=== PATIENT | female | born 1980 | race Caucasian/White ===

== ENCOUNTER 2018-02-16 10:06 | Day surgery (SDC) | payer MEDICAID ==
[~2018-02-16 10:06] MED LIST: ACETAMINOPHEN 1,000 MG/100 ML BTL IV ONE; CEFAZOLIN 2 Gram 2 GM/50 ML BAG IVPB ONE
[2018-02-16] MEDS ORDERED: HYDROCODONE/APAP 5/325MG TABLET PO ONE (10:07)
[2018-02-16] MEDS ORDERED: MIDAZOLAM HCL 2MG/2ML VIAL IV ONE (10:07)
[2018-02-16] MEDS ORDERED: *PACU ONLY* KETAMINE HCL 10 MG/ML (20ML) VIAL IV ONE (10:07)
[2018-02-16] MEDS ORDERED: LIDOCAINE 2% MDV (20MG/ML) 20ML VIAL IV ONE (10:07)
[2018-02-16] MEDS ORDERED: BUPIVACAINE 0.25% W/EPI MPF 30ML VIAL IVP ONE (10:07)
[2018-02-16] MEDS ORDERED: PROPOFOL 10 MG/ML VIAL IV ONE (10:07)
--- NOTE | 2018-02-19 11:00 | Operative Note ---
DATE OF SURGERY: 02/16/2018 Surgeon: Shant Alexander DO PREOPERATIVE DIAGNOSIS: Recurrent left breast abscess. POSTOPERATIVE DIAGNOSIS: Recurrent left breast abscess. OPERATION: I&D and debridement of left breast abscess. Indication: The patient is a 37-year-old female who has had a recurrent left breast abscess. We did send her for breast MRI which did reveal an abscess underneath the left nipple. She had some mild bit of black eschar over the skin as well. Therefore, consent was signed and questions answered. PROCEDURE: The patient was taken to the operating room and placed in a supine position. Local IV sedation was given per the department of anesthesia. The patient's left breast was prepped and draped in the usual fashion. The area over the abscess was anesthetized with a total of 5 mL of 0.25% Sensorcaine with epinephrine. An 11 blade was used to drain the abscess. Aerobic and anaerobic cultures were taken. The black eschar was debrided which measured about 0.5 cm. The wound was then irrigated and packed with iodoform gauze. She was sent to the recovery room in stable condition. CC: SHIVANI Sky
== END 2018-02-16 12:40 | disposition home or self-care (01) ==
LOC: SUR 10:06
PROVIDERS: ATTEND Surgery
DX: N61.1 Abscess of the breast and nipple (principal); E78.00 Pure hypercholesterolemia, unspecified
CPT/HCPCS: 10060; 00400; J0690

== ENCOUNTER 2018-02-20 23:39 | Emergency (ER) | payer MEDICAID ==
[2018-02-20] MEDS ORDERED: PREDNISONE 20 MG TAB PO ONE (23:49)
[2018-02-20] MEDS ORDERED: DIPHENHYDRAMINE HCL 25 MG CAPSULE PO ONE (23:49)
[2018-02-20] MEDS ORDERED: LORATADINE 10 MG TABLET PO STA (23:49)
--- NOTE | 2018-02-20 23:52 | Emergency Department Record ---
History of Present Illness - General Chief Complaint: Wound, check Stated Complaint: POST SURGICAL RASH Time Seen by Provider: 02/20/18 23:46 Source: Patient Mode of arrival: Ambulatory Limitations: No limitations - History of Present Illness Initial Comments: 37 yo female presents with hives on her left breast. She reports she had surgery for a left breast abscess. She had had itching since Friday. The itching has gradually increased since Friday. The last day she has noted a few hives on the left breast only. NO shortness of breath. No fevers. No cough or facial swelling. No tongue or lip swelling. Dr Alexander is her surgeon. MD Complaint: Wound re-check -: Days(s) (3) Initial Visit For: Other (Hives) Returns Today for: Wound recheck Symptoms Since Prior Visit: No new symptoms Associated Symptoms: Other (itching) Treatments Prior to Arrival: Other (breast surgery) - Related Data Home Medications Medication Instructions Recorded Confirmed Last Taken Gabapentin [Neurontin] 300 mg PO BID 02/21/18 02/21/18 Unknown Gabapentin [Neurontin] 600 mg PO DAILY 02/21/18 02/21/18 Unknown Previous Rx's Medication Instructions Recorded Cetirizine HCl [Zyrtec] 10 mg PO DAILY #15 tablet 02/20/18 Diphenhydramine HCl [Benadryl] 25 mg PO Q6H #20 cap 02/20/18 Allergies Allergy/AdvReac Type Severity Reaction Status Date / Time oxycodone HCl [From Percocet] AdvReac Intermediate HYPERSENSIT Verified 00:00 IVITY Review of Systems Constitutional: Denies: Chills, Fever, Malaise, Weakness Eyes: Denies: Eye discharge ENT: Denies: Congestion, Throat pain Respiratory: Denies: Cough Cardiovascular: Denies: Chest pain Endocrine: Denies: Fatigue Gastrointestinal: Denies: Abdominal pain, Diarrhea, Nausea, Vomiting Genitourinary: Denies: Dysuria, Urgency Musculoskeletal: Denies: Arthralgia, Back pain, Myalgia Skin: Reports: Rash (Hives). Denies: Bruising Neurological: Denies: Confusion, Weakness Psychiatric: Denies: Anxiety Hematological/Lymphatic: Denies: Easy bleeding, Easy bruising Past Medical History - SOCIAL HISTORY Smoking Status: Current every day smoker - RESPIRATORY Hx Respiratory Disorders: Yes Hx Bronchitis: Yes - CARDIOVASCULAR Hx Cardio Disorders: Yes Hx Palpitations: Yes (with diet pop) Comment:: high cholesterol - NEURO Hx Neuro Disorders: Yes Hx of Migraines: Yes (3-4 x's a year) - GI Hx GI Disorders: No - Hx Genitourinary Disorders: No Comment:: s/p TL - ENDOCRINE Hx Endocrine Disorders: No - MUSCULOSKELETAL Hx Musculoskeletal Disorders: Yes - PSYCH Hx Psych Problems: No - HEMATOLOGY/ONCOLOGY Hx Hematology/Oncology Disorders: No Family Medical History Family Hx Comment (NOT TO BE USED IN PLACE OF ITEMS BELOW): family blood clots Physical Exam - General General Appearance: Alert, Oriented x3, Cooperative, No acute distress Limitations: No limitations - Head Head exam: Normal inspection - Eye Eye exam: Normal appearance, PERRL. negative: Conjunctival injection, Scleral icterus - ENT ENT exam: Normal exam, Mucous membranes moist Ear exam: Normal external inspection Nasal Exam: Normal inspection Mouth exam: Normal external inspection Throat exam: Normal inspection - Neck Neck exam: Normal inspection, Full ROM. negative: Tenderness - Respiratory Respiratory exam: Normal lung sounds bilaterally. negative: Respiratory distress - Cardiovascular Cardiovascular Exam: Regular rate, Normal rhythm, Normal heart sounds - GI/Abdominal GI/Abdominal exam: Soft. negative: Tenderness - Rectal Rectal exam: Deferred - exam: Deferred - Extremities Extremities exam: Normal inspection Image of Full Body: 1 - few scattered hives around the breast, no abnormal warmth or blisters, no bruising, no signs of infection or cellulitis - Neurological Neurological exam: Alert, Oriented X3 - Psychiatric Psychiatric exam: Normal affect, Normal mood - Skin Skin exam: Rash, Urticaria Disposition Disposition: Discharge Clinical Impression: Hives Disposition: Home, Self-Care Condition: (1) Good Instructions: Urticaria (ED) Additional Instructions: Take the Zyrtec and Benadryl for the itching Call Dr Alexander with further care of the healing Return if you have any worsening symptoms, fever, short of breath or concerns Prescriptions: Cetirizine HCl [Zyrtec] 10 mg PO DAILY #15 tablet Diphenhydramine HCl [Benadryl] 25 mg PO Q6H #20 cap Forms: Patient Portal Access Time of Disposition: 23:54 Quality - Quality Measures Quality Measures: N/A - Blood Pressure Screening Does Patient Have Any of the Following: No Blood Pressure Classification: Normal BP Reading Systolic Measurement: 113 Diastolic Measurement: 69 Screening for High Blood Pressure: < Normal BP, F/U Not Required > [G8783]
== END 2018-02-21 00:07 | disposition home or self-care (01) ==
LOC: ER 23:39
DX: L50.9 Urticaria, unspecified (principal); Z98.890 Other specified postprocedural states; F17.210 Nicotine dependence, cigarettes, uncomplicated
CPT/HCPCS: 99282; J7512

== ENCOUNTER 2018-03-28 10:52 | Emergency (ER) | payer MEDICAID ==
[2018-03-28] MEDS ORDERED: KETOROLAC 30 MG/ML VIAL IVP STA (11:00)
[2018-03-28] MEDS ORDERED: AMPICILLIN SODIUM/SULBACTAM NA 3 G in 0.9 % SODIUM CHLORIDE 100ML 100 ML IVPB ONE (11:00)
--- NOTE | 2018-03-28 11:07 | Emergency Department Record ---
History of Present Illness - General Chief complaint: Dental Stated complaint: TOOTH INFECTION Time Seen by Provider: 03/28/18 10:55 Source: Patient Mode of Arrival: Ambulatory Limitations: No limitations - History of Present Illness Initial comments: 37 yo female presents with left jaw swelling that started yesterday. She has a history of recurrent dental infections. She had similar infection on the right lower jaw one month ago. No pus or drainage. She has an appointment with a dentist but not until April. No trouble swallowing. No voice changes. She has swelling of the left jaw. No fevers. She is not on antibiotics. MD complaint: Tooth pain -: Days(s) (2) Location: Other Severity: Moderate Quality: Aching Consistency: Constant Improves with: None Worsens with: Eating, Movement Context-Epistaxis: Other Context- Dental: History of dental caries Associated Symptoms: Toothache - Related Data Previous Rx's Medication Instructions Recorded Amoxicillin/Potassium Clav 1 tab PO BID #20 tab 03/28/18 [Augmentin 875-125 Tablet] Allergies Allergy/AdvReac Type Severity Reaction Status Date / Time oxycodone HCl [From Percocet] AdvReac Intermediate HYPERSENSIT Verified 11:00 IVITY Review of Systems Constitutional: Denies: Chills, Fever, Malaise, Weakness Eyes: Denies: Eye discharge ENT: Reports: As per HPI, Dental pain. Denies: Congestion, Throat pain Respiratory: Denies: Cough, Dyspnea, Hemoptysis, Wheezes Cardiovascular: Denies: Chest pain, Syncope Endocrine: Denies: Fatigue Gastrointestinal: Denies: Abdominal pain, Diarrhea, Nausea, Vomiting Genitourinary: Denies: Dysuria Musculoskeletal: Denies: Arthralgia, Back pain, Joint swelling, Myalgia Skin: Denies: Bruising, Change in color, Rash Neurological: Denies: Headache, Numbness, Weakness Psychiatric: Denies: Anxiety Hematological/Lymphatic: Denies: Easy bleeding, Easy bruising, Swollen glands Past Medical History - SOCIAL HISTORY Smoking Status: Current every day smoker - RESPIRATORY Hx Respiratory Disorders: Yes Hx Bronchitis: Yes - CARDIOVASCULAR Hx Cardio Disorders: Yes Hx Palpitations: Yes (with diet pop) Comment:: high cholesterol - NEURO Hx Neuro Disorders: Yes Hx of Migraines: Yes (3-4 x's a year) - GI Hx GI Disorders: No - Hx Genitourinary Disorders: No Comment:: s/p TL - ENDOCRINE Hx Endocrine Disorders: No - MUSCULOSKELETAL Hx Musculoskeletal Disorders: Yes - PSYCH Hx Psych Problems: No - HEMATOLOGY/ONCOLOGY Hx Hematology/Oncology Disorders: No Family Medical History Family Hx Comment (NOT TO BE USED IN PLACE OF ITEMS BELOW): family blood clots Physical Exam - General General Appearance: Alert, Oriented x3, Cooperative Limitations: No limitations - Head Head exam: negative: Normal inspection Image of Face/Head: 1 - swelling and tenderness, no erythema - Eye Eye exam: Normal appearance, Conjunctival injection. negative: Periorbital swelling, Periorbital tenderness, Scleral icterus - ENT ENT exam: Mucous membranes moist. negative: Normal orophraynx Ear exam: Normal external inspection Nasal Exam: Normal inspection Mouth exam: Tongue normal. negative: Normal external inspection, Drooling, Muffled voice, Tongue elevation Teeth exam: Dental caries, Dental tenderness # (19), Fractured tooth # (19), Gingival enlargement (no palpable or visible abscess, mild diffuse iflammation of the gum around the tooth). negative: Normal inspection Throat exam: Normal inspection. negative: Tonsillar erythema, Tonsillomegaly, Tonsillar exudate, R peritonsillar mass, L peritonsillar mass - Neck Neck exam: Normal inspection, Full ROM, Other (soft, supple, no tenderness or pain). negative: Lymphadenopathy, Meningismus, Tenderness - Respiratory Respiratory exam: Normal lung sounds bilaterally. negative: Respiratory distress - Cardiovascular Cardiovascular Exam: Regular rate, Normal rhythm, Normal heart sounds - Extremities Extremities exam: Normal inspection - Back Back exam: Reports: Normal inspection - Neurological Neurological exam: Alert, Oriented X3 - Psychiatric Psychiatric exam: Normal affect, Normal mood - Skin Skin exam: Dry, Intact, Normal color, Warm Course - Reevaluation(s) Reevaluation #1: 03/28/18 11:09 The patient has local swelling No neck pain or swelling She will be given IV Unasyn then Rx for Augmentin. She is to call her dentist Friday She is to be seen if worse sooner over the weekend Disposition Disposition: Discharge Clinical Impression: Dental abscess Disposition: Home, Self-Care Condition: (1) Good Instructions: Dental Abscess (ED) Additional Instructions: Take the Augmentin as directed Call your dentist on Friday to be seen Be seen immediately if worse, fever, neck pain or swelling Prescriptions: Amoxicillin/Potassium Clav [Augmentin 875-125 Tablet] 1 tab PO BID #20 tab Forms: Patient Portal Access Time of Disposition: 11:33 Quality - Quality Measures Quality Measures: N/A - Blood Pressure Screening Does Patient Have Any of the Following: No Blood Pressure Classification: Normal BP Reading Systolic Measurement: 113 Diastolic Measurement: 77 Screening for High Blood Pressure: < Normal BP, F/U Not Required > [G8783]
== END 2018-03-28 12:03 | disposition home or self-care (01) ==
LOC: ER 10:52
DX: K04.7 Periapical abscess without sinus (principal); F17.210 Nicotine dependence, cigarettes, uncomplicated
CPT/HCPCS: 99284 ×2; 96365; 96375; J0295; J1885

== ENCOUNTER 2018-12-31 10:36 | Day surgery (SDC) | payer MEDICAID ==
[~2018-12-31 10:36] MED LIST changes: -CEFAZOLIN 2 Gram 2 GM/50 ML BAG IVPB ONE
[2018-12-31] MEDS ORDERED: FENTANYL PF 100MCG/2ML VIAL IV ONE (10:37)
[2018-12-31] MEDS ORDERED: ACETAMINOPHEN W/ CODEINE 300MG/30MG TABLET PO ONE (10:37)
[2018-12-31] MEDS ORDERED: SEVOFLURANE 250 ML INH ONE (10:37)
[2018-12-31] MEDS ORDERED: PROPOFOL 10 MG/ML VIAL IV ONE (10:37)
[2018-12-31] MEDS ORDERED: KETOROLAC 30 MG/ML VIAL IVP ONE (10:37)
[2018-12-31] MEDS ORDERED: LIDOCAINE 2% MDV (20MG/ML) 20ML VIAL IV ONE (10:37)
[2018-12-31] MEDS ORDERED: ONDANSETRON HCL IV 4 MG/2 ML VIAL IVP ONE (10:37)
--- NOTE | 2019-01-01 08:50 | Operative Note ---
DATE OF SURGERY: 12/31/2018 Surgeon: Ken Arrington DO PREOPERATIVE DIAGNOSIS: Carpal tunnel syndrome of the left wrist. POSTOPERATIVE DIAGNOSIS: Carpal tunnel syndrome of the left wrist. OPERATION: Decompression left median nerve of the wrist using 3.5 loop magnification. DESCRIPTION OF PROCEDURE: This 38-year-old female was taken to the operating room and placed in the supine position on the operating room table. General anesthesia was induced. The left upper extremity was elevated, prepped with Hibiclens and draped in the usual sterile fashion. It was exsanguinated and the tourniquet inflated to 250 mmHg. A palmar incision was utilized following the hypothenar crease from the level of the base of the webspace of the thumb to the flexor crease of the wrist. Dissection was carried down through the palmar fascia to expose the flexor retinaculum. This was punctured and split to its proximal margin. Then, with the contents of the carpal tunnel under direct vision, the transverse carpal ligament was transected along its ulnar border. The radial flap was raised to expose the entire median nerve under the transverse carpal ligament. The recurrent motor branch of the median nerve was easily identified and found to be normal. Marked hyperemia of the median nerve under the transverse carpal ligament was identified with minimal hourglass deformity being identified. No other gross pathology was noted. The wound was irrigated and suctioned and hemostasis obtained with the electrocautery. The wound closed with interrupted 6-0 nylon suture. Sterile dressings were applied and a splint was applied with the wrist in slight dorsiflexion and the thumb in an adducted position. CC: MICKEY Mayer
== END 2018-12-31 12:50 | disposition home or self-care (01) ==
LOC: SUR 10:36
PROVIDERS: ATTEND Orthopaedic Surgery
DX: G56.02 Carpal tunnel syndrome, left upper limb (principal); E78.00 Pure hypercholesterolemia, unspecified
CPT/HCPCS: 64721; 01810; J1885; J2405; J3010

== ENCOUNTER 2019-08-08 09:11 | Observation (INO) | payer MEDICAID ==
[2019-08-08] MEDS ORDERED: ACETAMINOPHEN 1,000 MG/100 ML BTL IVPB ONE (09:30)
[2019-08-08 09:43] LABS: ABSOLUTE NEUTROPHIL COUNT 11.07; BASO % 0.1 % (0-6); EOS % 0.5 % (0-6); GRAN % 75.3 % (47-80); HEMATOCRIT 35.1 % (35.0-47.0); HEMOGLOBIN 11.4 gm/dl (11.6-16.0); LYMPH % 10.5 % (16-45); MEAN CELL VOLUME 87.8 fl (81-97); MEAN CORPUSCULAR HEMOGLOBIN 28.5 pg (27-33); MEAN CORPUSCULAR HGB CONC 32.5 g/dl (32-36); MEAN PLATELET VOLUME 9.9 fl (7.4-10.4); MONO % 13.6 % (0-9); PLATELET COUNT 240 K/uL (130-400); RED CELL DISTRIBUTION WIDTH 14.6 % (11.5-14.5); URINE APPEARANCE CLEAR; URINE BILIRUBIN NEGATIVE (NEGATIVE); URINE BLOOD TRACE-I (NEGATIVE); URINE COLOR YELLOW; URINE GLUCOSE (UA) NEGATIVE (NEGATIVE); URINE KETONE NEGATIVE (NEGATIVE); URINE LEUKOCYTE ESTERASE LARGE (NEGATIVE); URINE NITRITE POSITIVE (NEGATIVE); URINE PROTEIN TRACE (NEGATIVE); URINE UROBILINOGEN 0.2 E.U./dL (0.20 - 1.00); WHITE BLOOD COUNT W/O DIFF 14.7 K/uL (4.2-12.2)
[2019-08-08 09:53] LABS: URINE BACTERIA 1+; URINE WBC >50 (0-2/hpf)
[2019-08-08 09:55] LABS: BLOOD UREA NITROGEN 7 mg/dL (6-20); CREATININE 0.7 mg/dL (0.5-0.9); EST GLOMERULAR FILTRATION RATE > 60 mL/min
[2019-08-08 09:56] LABS: TOTAL PROTEIN 5.8 g/dL (6.6-8.7)
[2019-08-08 09:58] LABS: GLUCOSE,RANDOM 106 mg/dL (74-109)
[2019-08-08 10:01] LABS: ALB/GLOB RATIO 1.4 (1.1-1.8); ALBUMIN 3.4 g/dL (4.0-5.0); ALKALINE PHOSPHATASE 61 U/L (35-104); ALT/SGPT 12 U/L (<33); AST/SGOT 13 U/L (10.0-35.0)
[2019-08-08] MEDS ORDERED: 0.9 % SODIUM CHLORIDE 1,000 ML BAG IV ONE ×2 (10:02→10:29)
[2019-08-08] MEDS ORDERED: CEFTRIAXONE 1GM/50ML BAG 1 GM/50 ML BAG IVPB ONE (10:06)
[2019-08-08] MEDS ORDERED: IBUPROFEN 600 MG TABLET PO ONE (10:33)
--- NOTE | 2019-08-08 10:33 | Emergency Department Record ---
History of Present Illness - General Chief Complaint: Fever Stated Complaint: FEVER/MAHMOOD/BACK PAIN Time Seen by Provider: 08/08/19 09:22 Source: Patient Mode of Arrival: Ambulatory Limitations: No limitations - History of Present Illness Initial Comments: The patient is here due to a 3 day hx of body aches, low grade fever and mild back pain. The patient does have a hx of chronic back pain but this pain is worse. She denies any leg numbness, weakness, or any bowel or bladder issues. The patient also is having a mild MAHMOOD and urinary urgency and frequency. There has been no vomiting, diarrhea, AP, CP or SOB. MD Complaint: Fever, Malaise, Weakness Onset/Timin -: Days(s) - Related Data Allergies Allergy/AdvReac Type Severity Reaction Status Date / Time oxycodone HCl [From Percocet] AdvReac Intermediate HYPERSENSIT Verified 08/08/19 09:22 IVITY Travel Screening - Travel/Exposure Within Last 30 Days Have you traveled within the last 30 days?: No - Travel/Exposure Within Last Year Have you traveled outside the [place] in the last year?: No - Additonal Travel Details Have you been exposed to anyone with a communicable illness?: No - Travel Symptoms Symptom Screening: None Review of Systems Constitutional: Reports: Fever, Malaise. Denies: Chills Eyes: Denies: Eye discharge ENT: Denies: Congestion Respiratory: Denies: Cough, Dyspnea Cardiovascular: Denies: Arrhythmia Endocrine: Reports: Fatigue Gastrointestinal: Denies: Nausea Genitourinary: Denies: Hematuria, Incontinence Musculoskeletal: Denies: Arthralgia Skin: Denies: Bruising Past Medical History - SOCIAL HISTORY Smoking Status: Current every day smoker Alcohol Use: None Drug Use: None - RESPIRATORY Hx Respiratory Disorders: Yes Hx Bronchitis: Yes (YEARLY) - CARDIOVASCULAR Hx Cardio Disorders: Yes Hx Palpitations: Yes (with diet pop) Comment:: high cholesterol - NEURO Hx Neuro Disorders: Yes Hx of Migraines: Yes (3-4 x's a year) - GI Hx GI Disorders: No - Hx Genitourinary Disorders: No Comment:: s/p TL - ENDOCRINE Hx Endocrine Disorders: No - MUSCULOSKELETAL Hx Musculoskeletal Disorders: Yes Comment:: LEFT CTS - PSYCH Hx Psych Problems: No - HEMATOLOGY/ONCOLOGY Hx Hematology/Oncology Disorders: No Family Medical History Any Significant Family History?: Yes Family Hx Comment (NOT TO BE USED IN PLACE OF ITEMS BELOW): family blood clots Physical Exam - General General Appearance: Alert, Oriented x3, Cooperative, No acute distress - Head Head exam: Atraumatic, Normocephalic, Normal inspection - Eye Eye exam: Normal appearance, PERRL - ENT Throat exam: Normal inspection. negative: Tonsillar erythema, Tonsillar exudate - Neck Neck exam: Normal inspection, Full ROM. negative: Tenderness - Respiratory Respiratory exam: Normal lung sounds bilaterally. negative: Respiratory distress - Cardiovascular Cardiovascular Exam: Regular rate, Normal rhythm, Normal heart sounds - GI/Abdominal GI/Abdominal exam: Soft, Normal bowel sounds. negative: Rebound, Rigid, Tenderness - Extremities Extremities exam: Normal inspection, Full ROM, Normal capillary refill. negative: Tenderness - Back Back exam: Reports: Normal inspection, CVA tenderness (R) (mild.), CVA tenderness (L) (mild.), Full ROM. Denies: Muscle spasm, Paraspinal tenderness, Rash noted, Tenderness, Vertebral tenderness - Neurological Neurological exam: Alert, Motor sensory deficit, Normal gait. negative: Abnormal gait - Skin Skin exam: negative: Rash Course Vital Signs 08/08/19 08/08/19 09:15 10:27 Temperature 99.7 F H 99.5 F Pulse Rate 107 H Pulse Rate [ 91 H Pulse Ox Probe] Respiratory 18 16 Rate Blood Pressure 89/66 Blood Pressure 86/48 [Right Arm] Pulse Ox 98 97 - Reevaluation(s) Reevaluation #1: The patient is doing a lot better at this time and denies any MAHMOOD or back pain. She did receive 2 liters of IVF and her temp is normal but her blood pressure is still running a little low. Due to the fact I do believe she has pyelonephritis and her blood pressure running low I do feel she will benefit from a short stay admission for more IV Abx and monitoring. I did discuss the case with Dr. Tanner and he does agree with the plan and does accept the patient. 08/08/19 11:28 Medical Decision Making - Data Complexity MDM Data: Labs Ordered and/or Reviewed - Lab Data Result diagrams: 08/08/19 09:35 08/08/19 09:35 Lab Results 08/08/19 08/08/19 08/08/19 Range/Units 09:35 09:35 09:35 WBC 14.7 H (4.2-12.2) K/uL RBC 4.00 (3.80-5.40) M/uL Hgb 11.4 L (11.6-16.0) gm/dl Hct 35.1 (35.0-47.0) % MCV 87.8 (81-97) fl MCH 28.5 (27-33) pg MCHC 32.5 (32-36) g/dl RDW 14.6 H (11.5-14.5) % Plt Count 240 (130-400) K/uL MPV 9.9 (7.4-10.4) fl Gran % 75.3 (47-80) % Lymphocytes % 10.5 L (16-45) % Monocytes % 13.6 H (0-9) % Eosinophils % 0.5 (0-6) % Basophils % 0.1 (0-6) % Absolute Neutrophils 11.07 Sodium 137 (136-145) mmol/L Potassium 3.5 (3.4-4.5) mmol/L Chloride 106 (98-107) mmol/L Carbon Dioxide 20.0 L (22-29) mmol/L Anion Gap 11.0 (7-16) BUN 7 (6-20) mg/dL Creatinine 0.7 (0.5-0.9) mg/dL Estimated GFR > 60 mL/min Random Glucose 106 (74-109) mg/dL Calcium 8.5 L (8.6-10.0) mg/dL Total Bilirubin 0.40 (0.2-1.0) mg/dL AST 13 (10.0-35.0) U/L ALT 12 (<33) U/L Alkaline Phosphatase 61 (35-104) U/L C-Reactive Protein (<0.5) mg/dL Total Protein 5.8 L (6.6-8.7) g/dL Albumin 3.4 L (4.0-5.0) g/dL Globulin 2.4 (1.4-4.8) gm/dL Albumin/Globulin Ratio 1.4 (1.1-1.8) Urine Color Yellow Urine Appearance Clear Urine pH 6.0 (5.0-8.0) Ur Specific Pratt 1.010 (1.002-1.030) Urine Protein Trace H (NEGATIVE) Urine Glucose (UA) Negative (NEGATIVE) Urine Ketones Negative (NEGATIVE) Urine Blood Trace-i (NEGATIVE) Urine Nitrite Positive H (NEGATIVE) Urine Bilirubin Negative (NEGATIVE) Urine Urobilinogen 0.2 (0.20 - 1.00) E.U./dL Ur Leukocyte Esterase Large H (NEGATIVE) Urine RBC 3 - 6 (NONE SEEN) Urine WBC >50 (0-2/hpf) Ur Epithelial Cells 7 - 10 (FEW) Urine Bacteria 1+ Urine HCG, Qual (NEGATIVE) 08/08/19 08/08/19 Range/Units 09:35 09:35 WBC (4.2-12.2) K/uL RBC (3.80-5.40) M/uL Hgb (11.6-16.0) gm/dl Hct (35.0-47.0) % MCV (81-97) fl MCH (27-33) pg MCHC (32-36) g/dl RDW (11.5-14.5) % Plt Count (130-400) K/uL MPV (7.4-10.4) fl Gran % (47-80) % Lymphocytes % (16-45) % Monocytes % (0-9) % Eosinophils % (0-6) % Basophils % (0-6) % Absolute Neutrophils Sodium (136-145) mmol/L Potassium (3.4-4.5) mmol/L Chloride (98-107) mmol/L Carbon Dioxide (22-29) mmol/L Anion Gap (7-16) BUN (6-20) mg/dL Creatinine (0.5-0.9) mg/dL Estimated GFR mL/min Random Glucose (74-109) mg/dL Calcium (8.6-10.0) mg/dL Total Bilirubin (0.2-1.0) mg/dL AST (10.0-35.0) U/L ALT (<33) U/L Alkaline Phosphatase (35-104) U/L C-Reactive Protein 10.19 H (<0.5) mg/dL Total Protein (6.6-8.7) g/dL Albumin (4.0-5.0) g/dL Globulin (1.4-4.8) gm/dL Albumin/Globulin Ratio (1.1-1.8) Urine Color Urine Appearance Urine pH (5.0-8.0) Ur Specific Pratt (1.002-1.030) Urine Protein (NEGATIVE) Urine Glucose (UA) (NEGATIVE) Urine Ketones (NEGATIVE) Urine Blood (NEGATIVE) Urine Nitrite (NEGATIVE) Urine Bilirubin (NEGATIVE) Urine Urobilinogen (0.20 - 1.00) E.U./dL Ur Leukocyte Esterase (NEGATIVE) Urine RBC (NONE SEEN) Urine WBC (0-2/hpf) Ur Epithelial Cells (FEW) Urine Bacteria Urine HCG, Qual Negative (NEGATIVE) Disposition Disposition: Admit Clinical Impression: Pyelonephritis Disposition: Still a Patient at [facility] Decision to Admit: Admit from ER Decision to Admit Date: 08/08/19 Decision to Admit Time: 11:30 Accepting Physician: Ciro Ag Discussed w/Accepting Physician: 11:30 Condition: (2) Stable Forms: Patient Portal Access Time of Disposition: 11:30 Quality - Quality Measures Quality Measures: N/A - Blood Pressure Screening View Details: Yes Does Patient Have Any of the Following: No Blood Pressure Classification: Normal BP Reading Systolic Measurement: 89 Diastolic Measurement: 66 Screening for High Blood Pressure: < Normal BP, F/U Not Required > [G8783]
[2019-08-08] MEDS ORDERED: ATORVASTATIN 20 MG TABLET PO SCH (11:45)
[2019-08-08] MEDS ORDERED: IBUPROFEN 600 MG TABLET PO PRN (11:45)
[2019-08-08] MEDS ORDERED: 0.9 % SODIUM CHLORIDE 1000ML 1,000 ML IV ONE (11:45)
[2019-08-08] MEDS ORDERED: SUMATRIPTAN SUCCINATE 25 MG PO SCH (11:45)
--- NOTE | 2019-08-08 14:10 | History & Physical ---
History of Present Illness - Date of Service Date of Service for History & Physical: 08/09/19 - History of Present Illness Admitting Diagnosis: 1. Acute Pyelonephritis History of Present Illness: Ms. Hector is a 39 y/o old female with a 3 day history of generalized body aches, subjective fever and headaches. The patient also has had urinary frequency, urgency and lower back pain. At baseline the patient has chronic back and for which she takes Gabapentin however she states that this pain was different. In the ED the patient's labs showed mild elevation in white count, with UA positive for WBCs, leukocytes and nitrites. The patient was mildly hypo tensive but was otherwise hemodynamically stable. She was given bolus iv fluids and started on Rocephin 1mg Q12H for acute pyelonephritis and admitted to the general medical floor for continued iv antibiotic therapy. PCP: Christina Lopez NP Travel Screening - Travel/Exposure Within Last 30 Days Have you traveled within the last 30 days?: No - Travel/Exposure Within Last Year Have you traveled outside the [place] in the last year?: No - Additonal Travel Details Have you been exposed to anyone with a communicable illness?: No - Travel Symptoms Symptom Screening: None Review of Systems Constitutional: Reports: Fever, Malaise. Denies: Chills Eyes: Denies: Eye discharge ENT: Denies: Congestion Respiratory: Denies: Cough, Dyspnea Cardiovascular: Denies: Arrhythmia Endocrine: Reports: Fatigue Gastrointestinal: Denies: Nausea Genitourinary: Denies: Hematuria, Incontinence Musculoskeletal: Denies: Arthralgia Skin: Denies: Bruising Past Medical History - SOCIAL HISTORY Smoking Status: Current every day smoker Alcohol Use: None Drug Use: None - RESPIRATORY Hx Respiratory Disorders: Yes Hx Bronchitis: Yes (YEARLY) - CARDIOVASCULAR Hx Cardio Disorders: Yes Hx Palpitations: Yes (with diet pop) Comment:: high cholesterol - NEURO Hx Neuro Disorders: Yes Hx of Migraines: Yes (3-4 x's a year) - GI Hx GI Disorders: No - Hx Genitourinary Disorders: No Comment:: s/p TL - ENDOCRINE Hx Endocrine Disorders: No - MUSCULOSKELETAL Hx Musculoskeletal Disorders: Yes Comment:: LEFT CTS - PSYCH Hx Psych Problems: No - HEMATOLOGY/ONCOLOGY Hx Hematology/Oncology Disorders: No Family Medical History Any Significant Family History?: Yes Family Hx Comment (NOT TO BE USED IN PLACE OF ITEMS BELOW): family blood clots Hx Diabetes: Mother Hx Liver Disease: Mother H&P Meds/Allergies - Allergies Allergies: Allergies Allergy/AdvReac Type Severity Reaction Status Date / Time oxycodone HCl [From Percocet] AdvReac Intermediate HYPERSENSIT Verified 08/08/19 09:22 IVITY - Active Medications Active Medications: Current Medications Acetaminophen (Tylenol 325mg) 650 mg PO Q6H PRN PRN Reason: PAIN - MILD(1-4)/FEVER Atorvastatin Calcium (Lipitor) 20 mg PO QD [facility] Last Admin: 08/08/19 12:38 Dose: Not Given Documented by: Gabapentin (Neurontin) 600 mg PO BID FRANK Sodium Chloride () 1,000 mls @ 100 mls/hr IV .Q10H ONE Stop: 08/08/19 21:44 Last Admin: 08/08/19 12:37 Dose: 100 mls/hr Documented by: CEFTRIAXONE 1GM/50ML BAG (Ceftriaxone 1 Gm-D5w Bag) 1 gm in 50 mls @ 100 mls/hr IVPB Q12HR FRANK Ibuprofen (Motrin 600mg) 600 mg PO Q8H PRN PRN Reason: FEVER Physical Exam - Vital Signs Vital Signs: Vital Signs - Last 24 Hrs Temp Pulse Pulse Resp BP BP Pulse Ox 08/08/19 13:44 98.7 F 80 20 102/74 08/08/19 13:06 20 08/08/19 11:45 98.7 F 81 16 103/56 95 08/08/19 11:21 98.6 F 79 16 94/57 97 08/08/19 10:27 99.5 F 91 H 16 86/48 97 08/08/19 09:15 99.7 F H 107 H 18 89/66 98 - General General Appearance: Alert, Oriented x3, Cooperative, No acute distress Limitations: No limitations - Head Head exam: Atraumatic, Normocephalic, Normal inspection - Eye Eye exam: Normal appearance, PERRL - ENT Throat exam: Normal inspection. negative: Tonsillar erythema, Tonsillar exudate - Neck Neck exam: Normal inspection, Full ROM. negative: Tenderness - Respiratory Respiratory exam: Normal lung sounds bilaterally. negative: Respiratory distress - Cardiovascular Cardiovascular Exam: Regular rate, Normal rhythm, Normal heart sounds - GI/Abdominal GI/Abdominal exam: Soft, Normal bowel sounds. negative: Rebound, Rigid, Tenderness - Extremities Extremities exam: Normal inspection, Full ROM, Normal capillary refill. negative: Tenderness - Back Back exam: Reports: Normal inspection, CVA tenderness (R) (mild.), CVA tenderness (L) (mild.), Full ROM. Denies: Muscle spasm, Paraspinal tenderness, Rash noted, Tenderness, Vertebral tenderness - Neurological Neurological exam: Alert, Motor sensory deficit, Normal gait. negative: Abnormal gait - Skin Skin exam: negative: Rash Results - Labs Result Diagrams: 08/09/19 06:17 08/08/19 09:35 Labs Last 24 Hours: Laboratory Results - last 24 hr 08/08/19 08/08/19 08/08/19 09:35 09:35 09:35 WBC 14.7 H RBC 4.00 Hgb 11.4 L Hct 35.1 MCV 87.8 MCH 28.5 MCHC 32.5 RDW 14.6 H Plt Count 240 MPV 9.9 Gran % 75.3 Lymphocytes % 10.5 L Monocytes % 13.6 H Eosinophils % 0.5 Basophils % 0.1 Absolute Neutrophils 11.07 Sodium 137 Potassium 3.5 Chloride 106 Carbon Dioxide 20.0 L Anion Gap 11.0 BUN 7 Creatinine 0.7 Estimated GFR > 60 Random Glucose 106 Calcium 8.5 L Total Bilirubin 0.40 AST 13 ALT 12 Alkaline Phosphatase 61 C-Reactive Protein Total Protein 5.8 L Albumin 3.4 L Globulin 2.4 Albumin/Globulin Ratio 1.4 Urine Color Yellow Urine Appearance Clear Urine pH 6.0 Ur Specific Randolph 1.010 Urine Protein Trace H Urine Glucose (UA) Negative Urine Ketones Negative Urine Blood Trace-i Urine Nitrite Positive H Urine Bilirubin Negative Urine Urobilinogen 0.2 Ur Leukocyte Esterase Large H Urine RBC 3 - 6 Urine WBC >50 Ur Epithelial Cells 7 - 10 Urine Bacteria 1+ Urine HCG, Qual 08/08/19 08/08/19 09:35 09:35 WBC RBC Hgb Hct MCV MCH MCHC RDW Plt Count MPV Gran % Lymphocytes % Monocytes % Eosinophils % Basophils % Absolute Neutrophils Sodium Potassium Chloride Carbon Dioxide Anion Gap BUN Creatinine Estimated GFR Random Glucose Calcium Total Bilirubin AST ALT Alkaline Phosphatase C-Reactive Protein 10.19 H Total Protein Albumin Globulin Albumin/Globulin Ratio Urine Color Urine Appearance Urine pH Ur Specific Randolph Urine Protein Urine Glucose (UA) Urine Ketones Urine Blood Urine Nitrite Urine Bilirubin Urine Urobilinogen Ur Leukocyte Esterase Urine RBC Urine WBC Ur Epithelial Cells Urine Bacteria Urine HCG, Qual Negative VTE H&P Assessment - Risk for VTE Risk for VTE: Yes Risk Level: Moderate Risk Assessment Date: 08/08/19 Risk Assessment Time: 14:12 VTE Orders Placed or Will Be Placed: Yes Plan - Detailed Diagnosis and Plan (1) Pyelonephritis Current Visit: Yes Status: Acute Base Code: N12 - TUBULO-INTERSTITIAL NEPHRITIS, NOT SPCF ACUTE OR CHRONIC Comment: 08/08/19: - UA + leukocytes, nitrites and WBCs 3-5. - Urine culture pending. - Empiric Abx with Rocephin 1mg Q12H, IVF: 0.9% (2) Chronic low back pain Current Visit: Yes Status: Acute Base Code: M54.5 - LOW BACK PAIN; G89.29 - OTHER CHRONIC PAIN Comment: 08/08/19: - Resume home doses of Gabapentin 300mg TID PRN and Naproxen 500mg BID PRN. (3) HLD (hyperlipidemia) Current Visit: Yes Status: Acute Base Code: E78.5 - HYPERLIPIDEMIA, UNSPECIFIED Comment: 08/08/19: - Resume Atorvastatin 20mg QHS. (4) Full code status Current Visit: Yes Status: Acute Base Code: Z78.9 - OTHER SPECIFIED HEALTH STATUS Comment: 08/08/19: - The patient is full code.
[2019-08-08] MEDS: CEFTRIAXONE 1GM/50ML BAG 1 GM/50 ML BAG IVPB SCH (22:46)
[2019-08-08] MEDS: GABAPENTIN 300 MG CAPSULE PO SCH (22:48)
[2019-08-08] MEDS: ACETAMINOPHEN 325 MG TAB PO PRN (22:49)
[2019-08-09 06:37] LABS: ABSOLUTE NEUTROPHIL COUNT 8.14; BASO % 0.2 % (0-6); EOS % 1.6 % (0-6); GRAN % 70.5 % (47-80); HEMATOCRIT 33.2 % (35.0-47.0); HEMOGLOBIN 10.5 gm/dl (11.6-16.0); LYMPH % 13.1 % (16-45); MEAN CELL VOLUME 89.2 fl (81-97); MEAN CORPUSCULAR HEMOGLOBIN 28.2 pg (27-33); MEAN CORPUSCULAR HGB CONC 31.6 g/dl (32-36); MEAN PLATELET VOLUME 10.2 fl (7.4-10.4); MONO % 14.6 % (0-9); PLATELET COUNT 204 K/uL (130-400); RED BLOOD COUNT 3.72 M/uL (3.80-5.40); RED CELL DISTRIBUTION WIDTH 14.8 % (11.5-14.5); WHITE BLOOD COUNT W/O DIFF 11.5 K/uL (4.2-12.2)
[2019-08-09] MEDS: CEFTRIAXONE 1GM/50ML BAG 1 GM/50 ML BAG IVPB SCH (09:19)
[2019-08-09] MEDS: ACETAMINOPHEN 325 MG TAB PO PRN (09:20)
[2019-08-09] MEDS: GABAPENTIN 300 MG CAPSULE PO SCH (09:20)
--- NOTE | 2019-08-09 09:54 | Discharge Summary ---
Providers Discharge Summary Date: 08/09/19 Date of admission: 08/08/19 11:43 Attending physician: DAISY LIM Primary care physician: Christina Lopez N.P. Physical Exam - Vital Signs Vital Signs: Vital Signs - Last 24 Hrs Temp Pulse Resp BP Pulse Ox 08/09/19 08:00 98.2 F 50 L 109/60 99 08/09/19 05:00 98.5 F 78 20 113/52 97 08/08/19 23:51 98.3 F 80 18 98/44 98 08/08/19 20:43 99.9 F H 90 20 120/56 97 08/08/19 17:45 98.5 F 72 20 108/56 08/08/19 13:44 98.7 F 80 20 102/74 08/08/19 13:06 20 08/08/19 11:45 98.7 F 81 16 103/56 95 08/08/19 11:21 98.6 F 79 16 94/57 97 08/08/19 10:27 99.5 F 91 H 16 86/48 97 - General General Appearance: Alert, Oriented x3, Cooperative, No acute distress Limitations: No limitations - Head Head exam: Atraumatic, Normocephalic, Normal inspection - Eye Eye exam: Normal appearance, PERRL - ENT Throat exam: Normal inspection. negative: Tonsillar erythema, Tonsillar exudate - Neck Neck exam: Normal inspection, Full ROM. negative: Tenderness - Respiratory Respiratory exam: Normal lung sounds bilaterally. negative: Respiratory distress - Cardiovascular Cardiovascular Exam: Regular rate, Normal rhythm, Normal heart sounds Peripheral Pulses: 3+: Radial (R), Radial (L), Dorsalis Pedis (R), Dorsalis Pedis (L) - GI/Abdominal GI/Abdominal exam: Soft, Normal bowel sounds. negative: Rebound, Rigid, Tenderness - Extremities Extremities exam: Normal inspection, Full ROM, Normal capillary refill. negative: Tenderness - Back Back exam: Reports: Normal inspection, CVA tenderness (R) (mild.), CVA tenderness (L) (mild.), Full ROM. Denies: Muscle spasm, Paraspinal tenderness, Rash noted, Tenderness, Vertebral tenderness - Neurological Neurological exam: Alert, Motor sensory deficit, Normal gait. negative: Abnormal gait - Skin Skin exam: negative: Rash Hospitalization - Hospitalization Admission Diagnosis: 1. Acute Pyelonephritis - Problem List/Discharge Diagnosis (1) Pyelonephritis Current Visit: Yes Status: Acute Base Code: N12 - TUBULO-INTERSTITIAL NEPHRITIS, NOT SPCF ACUTE OR CHRONIC Comment: 08/09/19: - UA + leukocytes, nitrites and WBCs 3-5. - Urine culture pending. - Empiric Abx with Rocephin 1mg Q12H, IVF: 0.9% Change to PO Bactrim DS x 7 days at discharge. Follow up with PCP for UA within 1 week. (2) Chronic low back pain Current Visit: Yes Status: Acute Base Code: M54.5 - LOW BACK PAIN; G89.29 - OTHER CHRONIC PAIN Comment: 08/09/19: - Resume home doses of Gabapentin 300mg TID PRN and Naproxen 500mg BID PRN. (3) HLD (hyperlipidemia) Current Visit: Yes Status: Acute Base Code: E78.5 - HYPERLIPIDEMIA, UNSPECIFIED Comment: 08/09/19: - Resume Atorvastatin 20mg QHS. (4) Full code status Current Visit: Yes Status: Acute Base Code: Z78.9 - OTHER SPECIFIED HEALTH STATUS Comment: 08/09/19: - The patient is full code. - Hospitalization Course Hospital Course: Ms. Hector is a 39 y/o old female with a 3 day history of generalized body aches, subjective fever and headaches. The patient also has had urinary frequency, urgency and lower back pain. At baseline the patient has chronic back and for which she takes Gabapentin however she states that this pain was different. In the ED the patient's labs showed mild elevation in white count, with UA positive for WBCs, leukocytes and nitrites. The patient was mildly hypotensive but was otherwise hemodynamically stable. She was given bolus iv fluids and started on Rocephin 1mg Q12H for acute pyelonephritis and admitted to the general medical floor for continued iv antibiotic therapy. 08/09/19: Review of the patient this morning on rounds shows a marked improvement in symptoms. White count has improved and all other labs are within normal limits. The patient is table for discharge home with continued antibiotic therapy for the next 1 week using Bactrim DS twice daily. She is to follow up with her PCP within 1 week of discharge. PCP: Christina Lopez NP Abnormal Labs: Abnormal Lab Results 08/08/19 08/08/19 08/08/19 Range/Units 09:35 09:35 09:35 WBC 14.7 H (4.2-12.2) K/uL RBC (3.80-5.40) M/uL Hgb 11.4 L (11.6-16.0) gm/dl Hct (35.0-47.0) % MCHC (32-36) g/dl RDW 14.6 H (11.5-14.5) % Lymphocytes % 10.5 L (16-45) % Monocytes % 13.6 H (0-9) % Carbon Dioxide 20.0 L (22-29) mmol/L Calcium 8.5 L (8.6-10.0) mg/dL C-Reactive Protein (<0.5) mg/dL Total Protein 5.8 L (6.6-8.7) g/dL Albumin 3.4 L (4.0-5.0) g/dL Urine Protein Trace H (NEGATIVE) Urine Nitrite Positive H (NEGATIVE) Ur Leukocyte Esterase Large H (NEGATIVE) 08/08/19 08/09/19 Range/Units 09:35 06:17 WBC (4.2-12.2) K/uL RBC 3.72 L (3.80-5.40) M/uL Hgb 10.5 L (11.6-16.0) gm/dl Hct 33.2 L (35.0-47.0) % MCHC 31.6 L (32-36) g/dl RDW 14.8 H (11.5-14.5) % Lymphocytes % 13.1 L (16-45) % Monocytes % 14.6 H (0-9) % Carbon Dioxide (22-29) mmol/L Calcium (8.6-10.0) mg/dL C-Reactive Protein 10.19 H (<0.5) mg/dL Total Protein (6.6-8.7) g/dL Albumin (4.0-5.0) g/dL Urine Protein (NEGATIVE) Urine Nitrite (NEGATIVE) Ur Leukocyte Esterase (NEGATIVE) Condition at Discharge: (2) Stable Discharge Medications - Discharge Medications Prescriptions: Sulfamethoxazole/Trimethoprim [Bactrim Ds Tablet] 1 each PO Q12HR #14 tablet Home Medications: Ambulatory Orders Sulfamethoxazole/Trimethoprim [Bactrim Ds Tablet] 1 each PO Q12HR #14 tablet 08/09/19 [Last Taken Unknown] Discharge Plan - Discharge Instructions Activity at Discharge: Increase Activity as Tolerated Additional Instructions: Take Bactrim DS twice daily for the next 1 week. Follow up with your PCP Christina Lopez within 1 week of discharge. Quality Measures - Quality Measures Quality Measures: Documentation of Current Medications in Medical Record, Screening for High Blood Pressure and F/U Documented - Current Medications Quality Measure: Measure #130: Documentation of Current Medications Documentation of Current Medications: <Current Medications Documented/Reviewed> [G8427] - Blood Pressure Screening Quality Measure: Screening for High Blood Pressure and Follow-Up Documented Does Patient Have Any of the Following: No Blood Pressure Classification: Normal BP Reading Systolic Measurement: 89 Diastolic Measurement: 66 Screening for High Blood Pressure: < Normal BP, F/U Not Required > [G8783] - Elder Abuse Suspicion Index EASI Reference Information: [place] PETERSEN, Wyatt C, Jan D, Fatou Paige.Development and validation of a tool to assist physicians identification of elder abuse: The Elder Abuse Suspicion Index (EASI ). Journal of Elder Abuse and Neglect, 2008; 20 (3): 276-300.
[2019-08-09] MEDS ORDERED: ATORVASTATIN 20 MG TABLET PO SCH (10:00)
== END 2019-08-09 10:45 | disposition home or self-care (01) ==
LOC: ER 09:11 → MEDSURG 11:43
PROVIDERS: ADMIT Internal Medicine; ATTEND Internal Medicine
DX: N12 Tubulo-interstitial nephritis, not specified as acute or chronic (principal); M54.5 Low back pain; G89.29 Other chronic pain; E78.5 Hyperlipidemia, unspecified; R51 Headache; E78.00 Pure hypercholesterolemia, unspecified; R35.0 Frequency of micturition; R39.15 Urgency of urination; F17.210 Nicotine dependence, cigarettes, uncomplicated
CPT/HCPCS: 99285 ×2; 96365; 96366; 85025 ×2; 86140; 80053; 81001; 81025; G0378 ×2; J0696 ×2; 99220; J7030